=== PATIENT | female | born 2000 | race Caucasian/White ===

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

== ENCOUNTER 2023-04-02 22:34 | Emergency (ER) | payer BC, OTHER ==
[~2023-04-02] VITALS: Ht 170.2 cm; Wt 99.8 kg
[~2023-04-02 22:34] MED LIST changes: +IBUP800 PO; +ONDA4ODT MM; +VITAMIN D31250 MC2 PO
[2023-04-02 22:51] VITALS: BP 146/95
[2023-04-03] MEDS ORDERED: CYCL10 PO (00:47)
== END 2023-04-03 00:55 | disposition home or self-care (01) ==
LOC: ER 22:34
DX: M25.561 Pain in right knee (principal); J45.909 Unspecified asthma, uncomplicated; Z79.899 Other long term (current) drug therapy
CPT/HCPCS: 73560-RT; A9270; J1885

== ENCOUNTER 2023-04-11 22:21 | Emergency (ER) | payer BC, OTHER ==
[~2023-04-11] VITALS: Ht 162.6 cm; Wt 104.3 kg
[~2023-04-11 22:21] MED LIST changes: +CYCL10 PO
[2023-04-12 03:09] VITALS: BP 133/76
== END 2023-04-12 03:11 | disposition home or self-care (01) ==
LOC: ER 22:21
DX: J45.909 Unspecified asthma, uncomplicated (principal)
CPT/HCPCS: 94640; 94664; 99284-25; J1100

== ENCOUNTER → 2023-05-23 | Outpatient (CLI) | payer BC ==
[2023-05-23 10:03] LABS: BASOPHILS ABSOLUTE AUTO 0.08 K/mm3 (0.00-0.23); BASOPHILS PERCENT AUTO 1 % (0-2); EOSINOPHILS ABSOLUTE AUTO 0.33 K/mm3 (0.00-0.68); EOSINOPHILS PERCENT AUTO 3 % (0-6); Hemoglobin 13.6 g/dL (11.5-16.0); IMMATURE GRAN ABSOLUTE AUTO 0.13 K/mm3 (0.00-0.10); IMMATURE GRAN PERCENT AUTO 1 % (0-1); LYMPHOCYTES ABSOLUTE AUTO 4.01 K/mm3 (0.84-5.20); LYMPHOCYTES PERCENT AUTO 37 % (21-46); MONOCYTES ABSOLUTE AUTO 0.53 K/mm3 (0.16-1.47); MONOCYTES PERCENT AUTO 5 % (4-13); Mean Corpuscular HGB 27.7 pg (26.0-34.0); Mean Corpuscular HGB Conc 32.4 g/dL (31.5-36.5); Mean Corpuscular Volume 86 fL (80-100); Mean Platelet Volume 9.2 fL (9.1-12.4); NEUTROPHILS ABSOLUTE AUTO 5.66 K/mm3 (1.96-9.15); NEUTROPHILS PERCENT AUTO 53 % (41-73); Platelet Count 279 K/mm3 (150-400); RDW Coefficient Variation 13.2 % (11.7-14.2); Red Blood Cell Count 4.91 M/mm3 (3.80-5.20); White Blood Cell Count 10.74 K/mm3 (4.00-11.30)
[2023-05-23 10:23] LABS: Albumin, Blood 4.1 g/dL (3.4-5.0); Albumin/Globulin Ratio 1.1 (0.8-1.8); Bilirubin, Total 0.2 mg/dL (0.1-1.0); Calcium, Blood 9.5 mg/dL (8.5-10.1); Creatinine, Blood 0.92 mg/dL (0.40-1.00); Free Thyroxine 1.03 ng/dL (0.70-1.60); Globulin, Blood 3.8 g/dL (2.2-4.0); Thyroid Stimulating Hormone 5.058 uIU/mL (0.360-4.800); Total Protein, Blood 7.9 g/dL (6.4-8.2)
== END | disposition home or self-care (01) ==
LOC: LAB SHORT 10:00 → LAB 10:00
PROVIDERS: Emergency Medicine
DX: R06.09 Other forms of dyspnea (principal); R00.0 Tachycardia, unspecified
CPT/HCPCS: 80053; 84439; 84443; 84484; 85025; 85379

== ENCOUNTER 2023-06-10 22:24 | Emergency (ER) | payer BC ==
[~2023-06-10] VITALS: Ht 170.2 cm; Wt 103.0 kg
[2023-06-10 22:58] VITALS: BP 150/90
[2023-06-10] MEDS ORDERED: NAPR500 PO (23:17)
[2023-06-10] MEDS ORDERED: ONDA4 PO (23:17)
[2023-06-10] MEDS ORDERED: BENZ100A PO (23:20)
== END 2023-06-10 23:25 | disposition home or self-care (01) ==
LOC: ER 22:24
DX: J40 Bronchitis, not specified as acute or chronic (principal); J45.909 Unspecified asthma, uncomplicated; Z86.16 Personal history of COVID-19; Z79.899 Other long term (current) drug therapy
CPT/HCPCS: 87081; 87430; 99283; A9270

== ENCOUNTER 2023-08-24 02:23 | Emergency (ER) | payer BC ==
[~2023-08-24] VITALS: Ht 170.2 cm; Wt 97.5 kg
[~2023-08-24 02:23] MED LIST changes: +BENZ100A PO; +NAPR500 PO; +ONDA4 PO
[2023-08-24 02:38] VITALS: BP 150/91
== END 2023-08-24 06:45 | disposition home or self-care (01) ==
LOC: ER 02:23
DX: J06.9 Acute upper respiratory infection, unspecified (principal); B97.89 Other viral agents as the cause of diseases classified elsewhere; Z20.828 Contact with and (suspected) exposure to other viral communicable diseases; J45.909 Unspecified asthma, uncomplicated; Z79.899 Other long term (current) drug therapy
CPT/HCPCS: 99284

== ENCOUNTER → 2023-12-11 | Outpatient (CLI) | payer OTHER | END | disposition home or self-care (01) | LOC: LAB 14:40 → LAB SHORT 14:40 | DX: L08.89 Other specified local infections of the skin and subcutaneous tissue (principal) ==

== ENCOUNTER → 2024-02-10 | Outpatient (CLI) | payer OTHER ==
[2024-02-14 00:12] LABS: APTIMA MEDIA TYPE Unisex Swab; C. TRACHOMATIS BY TMA Negative (Negative); N. GONORRHOEAE BY TMA Negative (Negative); SPECIMEN SOURCE Vaginal
== END ==
LOC: LAB SHORT 17:00 → LAB 17:00
PROVIDERS: Advanced Practice Midwife
DX: Z11.3 Encounter for screening for infections with a predominantly sexual mode of transmission (principal)
CPT/HCPCS: 87491; 87591

== ENCOUNTER → 2024-02-17 | Outpatient (CLI) | payer OTHER | LOC: LAB 15:47 → LAB SHORT 15:47 | DX: N30.00 Acute cystitis without hematuria (principal) | CPT/HCPCS: 87086 ==

== ENCOUNTER → 2024-02-23 | Outpatient (CLI) | payer OTHER | LOC: LAB SHORT 18:08 → LAB 18:08 | DX: R35.0 Frequency of micturition (principal) | CPT/HCPCS: 87086 ==

== ENCOUNTER → 2024-02-25 | Outpatient (CLI) | payer OTHER ==
[2024-02-25 20:00] LABS: Bacterial Vaginosis PCR Negative (NEGATIVE); Candida Group, PCR NOT DETECTED (NOT DETECT); Candida glabrata-krusei, PCR NOT DETECTED (NOT DETECT)
== END | disposition home or self-care (01) ==
LOC: LAB SHORT 17:39 → LAB 17:39
PROVIDERS: Nurse Practitioner Family
DX: R35.0 Frequency of micturition (principal)
CPT/HCPCS: 87086; 87481; 87661; 87801

== ENCOUNTER → 2024-03-15 | Outpatient (CLI) | payer OTHER ==
[2024-03-15 19:34] LABS: Bacterial Vaginosis PCR Negative (NEGATIVE); Candida Group, PCR NOT DETECTED (NOT DETECT); Candida glabrata-krusei, PCR NOT DETECTED (NOT DETECT)
== END | disposition home or self-care (01) ==
LOC: LAB SHORT 14:16
PROVIDERS: Nurse Practitioner Family
DX: N89.8 Other specified noninflammatory disorders of vagina (principal)
CPT/HCPCS: 87481; 87661; 87801

== ENCOUNTER → 2024-06-17 | Outpatient (CLI) | payer OTHER ==
[2024-06-17 19:51] LABS: BASOPHILS ABSOLUTE AUTO 0.04 K/mm3 (0.00-0.23); BASOPHILS PERCENT AUTO 1 % (0-2); EOSINOPHILS ABSOLUTE AUTO 0.15 K/mm3 (0.00-0.68); EOSINOPHILS PERCENT AUTO 2 % (0-6); Hematocrit 41.6 % (33.0-51.0); Hemoglobin 14.5 g/dL (11.5-16.0); IMMATURE GRAN ABSOLUTE AUTO 0.04 K/mm3 (0.00-0.10); IMMATURE GRAN PERCENT AUTO 1 % (0-1); LYMPHOCYTES ABSOLUTE AUTO 2.88 K/mm3 (0.84-5.20); LYMPHOCYTES PERCENT AUTO 35 % (21-46); MONOCYTES PERCENT AUTO 6 % (4-13); Mean Corpuscular HGB Conc 34.9 g/dL (31.5-36.5); Mean Corpuscular Volume 83 fL (80-100); Mean Platelet Volume 10.7 fL (9.1-12.4); NEUTROPHILS ABSOLUTE AUTO 4.71 K/mm3 (1.96-9.15); NEUTROPHILS PERCENT AUTO 57 % (41-73); Platelet Count 335 K/mm3 (150-400); RDW Standard Deviation 39.3 fL (35.1-46.3); White Blood Cell Count 8.32 K/mm3 (4.00-11.30)
[2024-06-17 20:06] LABS: Albumin, Blood 4.2 g/dL (3.4-5.0); Albumin/Globulin Ratio 1.2 (0.8-1.8); Bilirubin, Total 0.3 mg/dL (0.1-1.0); Bun/Creatinine Ratio 18.7 (12.0-20.0); Calcium, Blood 9.5 mg/dL (8.5-10.1); Creatinine, Blood 0.91 mg/dL (0.40-1.00); Follicle Stimulating Hormone 3.3 mIU/ml; Globulin, Blood 3.5 g/dL (2.2-4.0); Potassium, Blood 3.9 mmol/L (3.5-5.5); Thyroid Stimulating Hormone 1.52 uIU/mL (0.360-4.800); Total Protein, Blood 7.7 g/dL (6.4-8.2)
[2024-06-20 14:45] LABS: ESTRADIOL BY IMMUNOASSAY 83 pg/mL
== END ==
LOC: LAB 17:55 → LAB SHORT 17:55
PROVIDERS: Nurse Practitioner Family
DX: E55.9 Vitamin D deficiency, unspecified (principal); R53.81 Other malaise; R23.2 Flushing
CPT/HCPCS: 80053; 82306; 82670; 83001; 84443; 85025

== ENCOUNTER 2024-07-27 15:18 | Emergency (ER) | payer OTHER ==
[~2024-07-27] VITALS: Ht 170.2 cm; Wt 110.7 kg
[2024-07-27 15:28] VITALS: BP 152/96
[2024-07-27] MEDS ORDERED: ZEBUTAL 50-3251 EAC1 PO (17:49)
[2024-07-27] MEDS ORDERED: Acetamin/Butalbital/Caffeine Tab PO ONE (17:50)
== END 2024-07-27 18:02 | disposition home or self-care (01) ==
LOC: ER 15:18
DX: G43.909 Migraine, unspecified, not intractable, without status migrainosus (principal)
CPT/HCPCS: 99283; A9270